=== PATIENT | female | born 1975 | race Two or more races ===

== ENCOUNTER → 2017-03-15 | Emergency (ER) | payer OTHER ==
[~2017-03-15] VITALS: Ht 167.6 cm; Wt 120.2 kg
[~2017-03-15] MED LIST: ALBUTEROL SULFAT2 MG; KETO10TA2 PO; ORPH100T PO; TRAMADOL HCL50 MG PO; ZITHROMAX500 MG PO
== END | disposition home or self-care (01) ==
LOC: ER 20:15
DX: J11.1 Influenza due to unidentified influenza virus with other respiratory manifestations (principal)

== ENCOUNTER 2018-08-02 11:28 | Emergency (ER) | payer OTHER ==
[~2018-08-02] VITALS: Ht 167.6 cm; Wt 122.0 kg
== END 2018-08-02 18:39 | disposition home or self-care (01) ==
LOC: ER 11:28
DX: K52.9 Noninfective gastroenteritis and colitis, unspecified (principal); E86.0 Dehydration

== ENCOUNTER → 2019-04-30 | Emergency (ER) | payer OTHER ==
[~2019-04-30] VITALS: Ht 167.6 cm; Wt 132.0 kg
[~2019-04-30] MED LIST changes: +CEFUROXIME500 MG PO; +FLONASE16 GM NASAL; +ZYNCOF 20-400120 ML PO
== END | disposition home or self-care (01) ==
LOC: ER 04:05
DX: H10.12 Acute atopic conjunctivitis, left eye (principal); J06.9 Acute upper respiratory infection, unspecified

== ENCOUNTER 2019-05-03 05:58 | Emergency (ER) | payer OTHER ==
[~2019-05-03] VITALS: Ht 167.6 cm; Wt 132.0 kg
== END 2019-05-03 09:32 | disposition home or self-care (01) ==
LOC: ER 05:58
DX: L50.8 Other urticaria (principal); J06.9 Acute upper respiratory infection, unspecified

== ENCOUNTER 2020-07-27 14:55 | Emergency (ER) | payer OTHER ==
[~2020-07-27] VITALS: Ht 167.6 cm; Wt 143.3 kg
== END 2020-07-27 16:51 | disposition home or self-care (01) ==
LOC: ER 14:55
DX: J45.998 Other asthma (principal)

== ENCOUNTER 2020-10-11 20:00 | Emergency (ER) | payer OTHER ==
[~2020-10-11] VITALS: Ht 175.3 cm; Wt 124.7 kg
[2020-10-12] MEDS ORDERED: PEPCID AC20 MG PO (01:05)
[2020-10-12] MEDS ORDERED: FLAGYL500MG PO (01:05)
[2020-10-12] MEDS ORDERED: PROBIOTIC1 EAC2 PO (01:05)
[2020-10-12] MEDS ORDERED: CIPRO500 MG PO (01:05)
== END 2020-10-12 01:52 | disposition home or self-care (01) ==
LOC: ER 20:00
DX: R19.7 Diarrhea, unspecified (principal)

== ENCOUNTER 2021-03-13 13:01 | Emergency (ER) | payer OTHER ==
[~2021-03-13] VITALS: Ht 167.6 cm; Wt 144.2 kg
[~2021-03-13 13:01] MED LIST changes: +CIPRO500 MG PO; +FLAGYL500MG PO; +PEPCID AC20 MG PO; +PROBIOTIC1 EAC2 PO
[2021-03-13] MEDS ORDERED: PROAIR HFA8.5 GM (13:43)
== END 2021-03-13 17:22 | disposition home or self-care (01) ==
LOC: ER 13:01
DX: B34.8 Other viral infections of unspecified site (principal); Z20.822 Contact with and (suspected) exposure to COVID-19; I10 Essential (primary) hypertension

== ENCOUNTER 2021-11-28 11:49 | Emergency (ER) | payer OTHER ==
[~2021-11-28] VITALS: Ht 167.6 cm; Wt 156.5 kg
[~2021-11-28 11:49] MED LIST changes: +PROAIR HFA8.5 GM
[2021-11-28] MEDS ORDERED: NORFLEX100MG PO (16:30)
[2021-11-28] MEDS ORDERED: KETO10TA2 PO (16:30)
[2021-11-28] MEDS ORDERED: CYCLOBENZAPRINE10 MG PO (16:30)
== END 2021-11-28 17:12 | disposition home or self-care (01) ==
LOC: ER 11:49
DX: S80.02XA Contusion of left knee, initial encounter (principal); W19.XXXA Unspecified fall, initial encounter; Y93.89 Activity, other specified; Y92.89 Other specified places as the place of occurrence of the external cause; Z88.0 Allergy status to penicillin; Z91.013 Allergy to seafood

== ENCOUNTER 2023-04-29 20:21 | Emergency (ER) | payer OTHER ==
[~2023-04-29] VITALS: Ht 167.6 cm; Wt 146.1 kg
[~2023-04-29 20:21] MED LIST changes: +CYCLOBENZAPRINE10 MG PO; +NORFLEX100MG PO
[2023-04-29] MEDS ORDERED: DEXAMETHASONE SODIUM PHOSPHATE 4 MG/ML VIAL IM ONE (21:45)
[2023-04-29 22:23] LABS: HEMATOCRIT 40.4 % (36.0-45.00); HEMOGLOBIN 13.5 g/dL (12.0-15.00); MEAN CELL VOLUME 84.4 fL (80.00-100.00); MEAN CORPUSCULAR HEMOGLOBIN 28.1 pg (27.00-32.0); MEAN CORPUSCULAR HGB CONC 33.3 g/dl (32.0-36.0); PLATELET COUNT 270 K/uL (150-450); RED BLOOD COUNT 4.79 M/uL (4.00-6.00); RED CELL DISTRIBUTION WIDTH 13.7 % (11.5-14.5)
== END 2023-04-29 23:17 | disposition home or self-care (01) ==
LOC: ER 20:21
PROVIDERS: General Practice
DX: J06.9 Acute upper respiratory infection, unspecified (principal); J45.909 Unspecified asthma, uncomplicated; Z88.0 Allergy status to penicillin; Z91.013 Allergy to seafood; Z20.822 Contact with and (suspected) exposure to COVID-19

== ENCOUNTER 2023-06-13 09:44 | Emergency (ER) | payer OTHER ==
[~2023-06-13] VITALS: Ht 167.6 cm; Wt 146.1 kg
[2023-06-13] MEDS ORDERED: GUAIFEN/DEXTROMETHORPHAN/PE 10 ML BLIST.PACK PO ONE (11:30)
[2023-06-13] MEDS ORDERED: IPRATROPIUM BROMIDE 0.5 MG/2.5 ML AMPUL.NEB IH ONE (11:30)
[2023-06-13] MEDS ORDERED: HYDROCORTISONE SODIUM SUCC/PF 1 MG/ML ML IM ONE (11:30)
[2023-06-13 12:24] LABS: HEMATOCRIT 39.7 % (36.0-45.00); HEMOGLOBIN 13.2 g/dL (12.0-15.00); MEAN CELL VOLUME 84.4 fL (80.00-100.00); MEAN CORPUSCULAR HEMOGLOBIN 28.1 pg (27.00-32.0); MEAN CORPUSCULAR HGB CONC 33.3 g/dl (32.0-36.0); PLATELET COUNT 228 K/uL (150-450); RED CELL DISTRIBUTION WIDTH 14.2 % (11.5-14.5)
[2023-06-13 12:43] LABS: PH,URINE 5.5 (5.0-8.0); URINE APPEARANCE Cloudy; URINE BILIRRUBIN Negative (NEGATIVE); URINE BLOOD Negative; URINE COLOR Yellow; URINE GLUCOSE Negative (NEGATIVE); URINE LEUKOCYTE Large; URINE NITRATE Negative; URINE PROTEIN Negative (NEGATIVE)
[2023-06-13 12:44] LABS: URINE EPITHELIAL CELLS 115.6 uL (0.0-38.8); URINE RBC 19.5 uL (0.0-20.8); URINE WBC 360.3 uL (0.0-23.2)
[2023-06-13 12:50] LABS: URINE BACTERIA > 9821.5 uL (0.0-1933)
[2023-06-13 12:56] LABS: ALBUMIN 3.8 gm/dL (3.4-5.0); BILIRUBIN TOTAL 1.3 mg/dL (0.3-1.2); CALCIUM 8.9 mg/dL (8.5-10.1); CREATININE SERUM 0.64 mg/dL (0.55-1.02); GFR 99.04; GLOBULINA 4.6 G/DL (2.4-3.5); POTASSIUM 3.72 mEq/L (3.5-5.1); TOTAL PROTEIN 8.4 gm/dL (6.4-8.2)
== END 2023-06-13 14:43 | disposition home or self-care (01) ==
LOC: ER 09:44
PROVIDERS: General Practice
DX: N39.0 Urinary tract infection, site not specified (principal); J45.909 Unspecified asthma, uncomplicated; Z20.822 Contact with and (suspected) exposure to COVID-19; Z88.0 Allergy status to penicillin; Z91.013 Allergy to seafood; I10 Essential (primary) hypertension

== ENCOUNTER 2023-12-05 14:10 | Emergency (ER) | payer OTHER ==
[~2023-12-05] VITALS: Ht 167.6 cm; Wt 141.1 kg
[2023-12-05 15:29] LABS: HEMATOCRIT 38.3 % (36.0-45.00); HEMOGLOBIN 12.6 g/dL (12.0-15.00); MEAN CELL VOLUME 86.3 fL (80.00-100.00); MEAN CORPUSCULAR HEMOGLOBIN 28.5 pg (27.00-32.0); PLATELET COUNT 267 K/uL (150-450); RED BLOOD COUNT 4.43 M/uL (4.00-6.00); RED CELL DISTRIBUTION WIDTH 14.2 % (11.5-14.5)
[2023-12-05 15:54] LABS: ALBUMIN 3.5 gm/dL (3.4-5.0); BILIRUBIN TOTAL 0.51 mg/dL (0.3-1.2); CREATININE SERUM 0.65 mg/dL (0.55-1.02); GFR 97.28; GLOBULINA 3.8 G/DL (2.4-3.5); POTASSIUM 3.7 mEq/L (3.5-5.1); TOTAL PROTEIN 7.3 gm/dL (6.4-8.2)
[2023-12-05 15:55] LABS: URINE APPEARANCE Clear; URINE BILIRRUBIN Negative (NEGATIVE); URINE BLOOD Negative; URINE COLOR Yellow; URINE GLUCOSE Negative (NEGATIVE); URINE KETONE Trace (NEGATIVE); URINE LEUKOCYTE Small; URINE NITRATE Negative; URINE PROTEIN Negative (NEGATIVE)
[2023-12-05 15:56] LABS: URINE BACTERIA 3021.3 uL (0.0-1933); URINE EPITHELIAL CELLS 38.6 uL (0.0-38.8); URINE RBC 18.7 uL (0.0-20.8); URINE WBC 66.6 uL (0.0-23.2)
[2023-12-05 16:08] LABS: URINE CAST 0.61 uL (0.0-1.40); URINE CRYSTALS FEW /HPF
[2023-12-05] MEDS ORDERED: CIPRO500 MG PO (17:18)
== END 2023-12-05 17:27 | disposition home or self-care (01) ==
LOC: ER 14:12
DX: R53.81 Other malaise (principal); N39.0 Urinary tract infection, site not specified; Z88.0 Allergy status to penicillin; Z91.013 Allergy to seafood

== ENCOUNTER 2024-02-11 23:23 | Emergency (ER) | payer OTHER ==
[~2024-02-11] VITALS: Ht 167.6 cm; Wt 141.1 kg
[2024-02-11 23:58] VITALS: BP 149/86; O2SAT 97
[2024-02-12 06:16] LABS: HEMATOCRIT 37.9 % (36.0-45.00); HEMOGLOBIN 12.6 g/dL (12.0-15.00); MEAN CELL VOLUME 85.3 fL (80.00-100.00); MEAN CORPUSCULAR HEMOGLOBIN 28.4 pg (27.00-32.0); MEAN CORPUSCULAR HGB CONC 33.3 g/dl (32.0-36.0); PLATELET COUNT 284 K/uL (150-450); RED BLOOD COUNT 4.44 M/uL (4.00-6.00); RED CELL DISTRIBUTION WIDTH 14.1 % (11.5-14.5)
== END 2024-02-12 07:13 | disposition home or self-care (01) ==
LOC: ER 23:25
DX: J06.9 Acute upper respiratory infection, unspecified (principal); Z91.013 Allergy to seafood; Z88.0 Allergy status to penicillin; Z20.822 Contact with and (suspected) exposure to COVID-19